=== PATIENT | female | born 1985 | race Caucasian/White ===

== ENCOUNTER 2024-04-27 11:52 | Emergency (ER) | payer OTHER, SELFPAY ==
--- NOTE | ~2024-04-27 | CT_ITS ---
EXAMINATION: CT ABDOMEN PELVIS WITHOUT IV CONTRAST CLINICAL INFORMATION: right abdominal pain COMPARISON: No prior CT available for comparison. TECHNIQUE: Multidetector volumetric imaging was performed from the superior aspect of the liver through the pubic symphysis 100 mL of Omnipaque 350 injected Sagittal and coronal reformatted images were obtained on the technologist's workstation. This CT examination was performed using dose optimization techniques as appropriate, variously including the following: *Automated exposure control *Adjustment of mA and/or kV according to patient size (this includes techniques or standardized protocols for targeted exams where dose is matched to indication/reason for exam; i.e. extremities or head) *Use of iterative reconstruction technique DLP: 521 mGy-cm FINDINGS: LOWER THORAX: Included lung bases are clear. HEPATOBILIARY: No focal hepatic lesions. No biliary ductal dilatation. GALLBLADDER: Gallbladder unremarkable. SPLEEN: Spleen is normal in size. PANCREAS: No focal mass or ductal dilatation. STOMACH AND GASTROINTESTINAL TRACT: Stomach is grossly unremarkable. There is no bowel distention or thickening. No CT evidence of appendicitis. ADRENALS: No adrenal nodules. KIDNEYS/URETERS: No hydronephrosis, stones or solid mass lesions. URINARY BLADDER: Partially decompressed. PELVIC VISCERA: Unremarkable PERITONEUM: Small amount of free fluid in the dependent portion of the pelvis cul-de-sac uncertain etiology. LYMPH NODES: No lymphadenopathy. VASCULAR:Abdominal aorta normal in size, no aneurysm found. BONES, ABDOMINAL WALL AND SOFT TISSUES: Age-appropriate changes of the spine and skeletal system, no destructive osteolytic or osteosclerotic bone lesion found CT/CT abdomen pelvis wo IV con IMPRESSION: 1. Small amount of free fluid in the dependent portion of the pelvis uncertain etiology. 2. No CT evidence of bowel obstruction. No kidney stone or hydronephrosis. No CT evidence of appendicitis. Electronically signed by: Julieta Berger MD 04/27/2024 02:29 PM EDT
[2024-04-27 12:00] VITALS: BP 119/88; PULSE 97; RESP 16; TEMP 36.4; O2SAT 97; BMI 27.2
--- NOTE | 2024-04-27 12:05 | ECG_ITS ---
Test Reason : ABDOMINAL PAIN Blood Pressure : / mmHG Vent. Rate : 076 BPM Atrial Rate : 076 BPM P-R Int : 158 ms QRS Dur : 094 ms QT Int : 388 ms P-R-T Axes : 065 041 023 degrees QTc Int : 436 ms Normal sinus rhythm with sinus arrhythmia Normal ECG No previous ECGs available Referred By: Raphael Jennings Electronically Signed By:ISATU NELSON
--- NOTE | 2024-04-27 12:06 | ED_ITS ---
HPI - General Adult General Chief complaint: Abdominal Pain Stated complaint: abd pain Time Seen by Provider: 04/27/24 12:25 Source: patient Mode of arrival: ambulatory Limitations: no limitations History of Present Illness ED Provider: DR. Wills HPI narrative: 39-year-old female walked to the emergency department for evaluation of right- sided abdominal pain that started about 2 weeks ago, patient had a prior evaluation at [facility] was diagnosed with anxiety and acid reflux, pain persist since then, feeling nauseous but no vomiting, no fever, no chills, normal appetite, last bowel movement was 3 days ago and was lose dark stool, no other sick contacts, no history of using antibiotic recently, no dysuria, no frequency urination, no vaginal bleeding, sexually active with 1 partner no concern STDs, declined chance of being . Pain is mostly to the right side of the abdomen. No past surgical abdominal history. Patient describes the pain as constant get worse after food. Related Data Previous Rx's ?Medication ?Instructions ?Recorded bisacodyl 10 mg rectal suppository 10 mg [place] DAILY PRN constipation 04/27/24 (Dulcolax (bisacodyl)) #12 ea Allergies Allergy/AdvReac Type Severity Reaction Status Date / Time No Known Allergies Allergy Verified 04/27/24 12:02 Review of Systems 2 Review of Systems: all other systems are reviewed and are negative Constitutional: Reports as per HPI and Reports no additional constitutional complaints Eyes: Reports as per HPI and Reports no additional eye complaints Reports system reviewed and no additional complaints, except as documented Cardiovascular: Reports as per HPI and Reports no additional cardiovascular complaints Respiratory: Reports as per HPI and Reports no additional respiratory complaints Gastrointestinal: Reports as per HPI and Reports no additional gastrointestinal complaints Genitourinary: Reports no additional female genitourinary complaints Musculoskeletal: Reports no additional musculoskeletal complaints Skin/Breast: Reports system reviewed and no additional complaints, except as docu Psychiatric: Reports no additional psychiatric complaints Endocrine: Reports no additional endocrine complaints Hematologic/Lymphatic: Reports no additional hematologic/lymphatic complaints Allergic/Immunologic: Reports no additional allergic/immunologic complaints Reports system reviewed and no additional complaints, except as documented and Reports Abnormal speech present [facility] [place] Past Medical History Medical History (Updated 04/27/24 @ 14:56 by Kell Wills MD) Anxiety Congenital hypoplasia of renal artery Social History Social History (System 08/21/23 @ 13:35 by Isabela Shelley) Alcohol intake: current Alcohol intake frequency: holidays/special occasions only Smoked in Last 30 Days: No Use of substances other than those prescribed or required for medical reasons: No Advance Directives: No Advance Directives Information Provided: No Patient : No Physical Exam ED Vital Signs: Vital Signs - 24 hr 04/27/24 12:00 04/27/24 15:09 Temperature 97.6 F 97.9 F Pulse Rate 97 92 Respiratory Rate 16 16 Blood Pressure 119/88 118/76 Pulse Oximetry 97 97 Oxygen Delivery Method Room Air Room Air BMI result Body Mass Index 27.2 Vital signs have been reviewed and appear to be correct. Blood pressure elevated. Heart rate normal. Respiratory rate normal. Temperature normal. Oxygen saturation normal. Appearance: Alert. Oriented X3. No acute distress. Head: Normal external exam. Normocephalic. Atraumatic. No [place] signs noted. No raccoon eyes noted Eyes: PERRLA. EOMI. Conjunctiva and sclera normal. Eyelids normal. ENT: TM's Normal. Pharynx normal. Uvula midline. Moist mucous membranes. No trismus noted. No drooling noted. No muffled voice noted. Neck: Normal inspection. Neck supple. FROM. No adenopathy. Thyroid Normal. No meningeal signs. No neck mass noted. CVS: Normal heart rate and rhythm. Heart sound normal. No murmurs noted. Pulses normal throughout. Respiratory: No respiratory distress. Painless inspiration. Breath sounds normal. No wheezes/rales/rhonchi noted. Chest nontender. No accessory muscle usage noted or decreased air movement noted. Abdomen: Soft, right upper quadrant tenderness, right lower quadrant tenderness, no guarding, no rebound tenderness.Bowel sounds normal in all 4 quadrants. No distention noted. No organomegaly noted. No visible injury noted. Back: No CVA tenderness. Full range of motion noted. Skin: Skin warm and dry. Normal skin color. Normal skin turgor. No rashes/lesions/lacerations noted. Extremities: No lower extremity edema. Extremities exhibit normal range of motion. Extremities nontender. Neuro: Oriented X 3. Cranial nerve exam: II-XII are grossly intact No motor deficit. No sensory deficit. Reflexes normal. Course Course Course Narrative: RME: done by RICCI Jennings. 39-year-old female presents to ED for right-sided abdominal pain for couple of weeks. Patient was seen at [facility] ED had no imaging only EKG and lab work. Patient states taking Pepcid with no relief. Physical exam positive for right upper quadrant right lower quadrant tenderness on palpation. Labs ordered. Reevaluation(s) Reevaluation #1: 2 weeks of abdominal pain and constipation last bowel movement was small and to 3 days ago, CT /labs / UA are unremarkable. Patient was instructed to take MiraLax and Dulcolax if needed, LFTs are unremarkable with normal gallbladder on the CT patient was instructed to follow-up with PCP and get GI referral. Time: 14:52 Medications Administered Discontinued Medications Generic Name Dose Route Start Last Admin Trade Name Freq PRN Reason Stop Dose Admin Al Hydroxide/Mg Hydroxide 30 ml 04/27/24 12:41 04/27/24 12:51 Magnesium Hydrox/Alum Hydrox 30 Ml Oral.Susp PO 04/27/24 12:42 Not Given ONCE ONE Famotidine 20 mg 04/27/24 12:41 04/27/24 12:49 Famotidine/Pf 20 Mg/2 Ml Vial IVPUSH 04/27/24 12:42 20 mg ONCE ONE Administration Medical Decision Making Differential Diagnosis Differential Diagnoses: The differential diagnosis associated with the presentation includes ( pancreatitis, gastritis, colitis, acute appendicitis, cholecystitis, ovarian cyst, UTI, , electrolyte derangement, severe anemia.) Admission/Observation Consideration of admission/observation: Escalation of care including admission/observation considered Lab Data MDM Lab Attestation statement: I reviewed the patient's lab results. 04/27/24 12:24 04/27/24 12:24 Labs: Lab Results 04/27/24 04/27/24 Range/Units 12:23 12:24 WBC 5.8 (4.8-10.8) X10*3/uL RBC 5.05 (4.20-5.50) X10*6/uL Hgb 15.0 (12.0-16.0) g/dl Hct 43.0 (37.0-47.0) % MCV 85.1 (80.0-98.0) fL MCH 29.7 (27.0-33.0) pg MCHC 34.9 (31.0-35.0) g/dl RDW 12.5 (11.0-16.0) % Plt Count 301 (160-400) X10*3/uL MPV 9.2 L (9.4-12.3) fL Immature Gran % (Auto) 0.5 H (0.0-0.4) % Neut % (Auto) 59.3 (45-73) % Lymph % (Auto) 27.8 (20-40) % [place] % (Auto) 10.5 (2-11) % Eos % (Auto) 1.6 (0-4) % Baso % (Auto) 0.3 (0-2) % Lymph # (Auto) 1.6 (1.2-4.9) X10*3/uL [place] # (Auto) 0.6 (0.1-1.2) X10*3/uL Eos # (Auto) 0.1 (0.0-0.4) X10*3/uL Baso # (Auto) 0.0 (0.0-0.2) X10*3/uL Abs Immat Gran (auto) 0.03 (0.00-0.03) X10*3/uL Absolute Neuts (auto) 3.4 (2.0-8.3) x10*3/uL Absolute Nucleated RBC 0.000 (0.0-0.012) X10*3/uL Nucleated RBC % (auto) 0.0 (0.0-0.2) /100WBC PT 12.0 (10.9-12.4) SEC INR 1.0 (0.9-1.1) APTT 35.1 (26.0-36.8) SEC Sodium 141 (135-145) mmol/L Potassium 3.9 (3.3-5.1) mmol/L Chloride 105 (96-108) mmol/L Carbon Dioxide 26 (22-29) mmol/L Anion Gap 14 (12-20) BUN 14 (9-16) mg/dL Creatinine 0.84 (0.5-1.4) mg/dL Estim Creat Clear Calc 92.4 Estimated GFR > 60 Random Glucose 101 (60-115) mg/dL Calcium 9.7 (8.4-10.2) mg/dL Total Bilirubin 0.7 (0.0-1.0) mg/dL AST 15 (5-31) U/L ALT 18 (0-31) U/L Alkaline Phosphatase 74 (39-117) U/L Troponin I High Sens < 2.7 (<3.5-17.0) ng/L Total Protein 7.0 (6.5-8.0) g/dL Albumin 4.4 (3.5-5.0) g/dL Lipase 18 (8-78) U/L Beta HCG, Quant < 2 mIU/mL Urine Color Yellow Urine Appearance Clear Urine pH 6.0 (5.0-9.0) Ur Specific [place] >= 1.030 H (1.005-1.025) Urine Protein Trace (Neg-Trace) mg/dL Urine Glucose (UA) Negative (Negative) mg/dL Urine Ketones Trace (Negative) mg/dL Urine Blood Large (3+) H (Negative) Urine Nitrite Negative (Negative) Ur Leukocyte Esterase Trace H (Negative) Urine RBC >20 H (0-2) /HPF Urine WBC 0-5 (0-5) /HPF Ur Squamous Epith Cells 6-10 (0-2) /HPF Urine Bacteria None Seen (None Seen) Hyaline Casts 0-2 (0-2) /LPF Urine Test NEGATIVE (NEGATIVE) Independent Interpretation I performed an independent interpretation of an: CT Scan ( Abdomen pelvis:1. Small amount of free fluid in the dependent portion of the pelvis uncertain etiology. 2. No CT evidence of bowel obstruction. No kidney stone or hydronephrosis. No CT evidence of appendicitis. ) Radiology Impression Discussion of test interpretation with radiology: I have reviewed the radiologist's reading. Discharge Plan Discharge Clinical Impression: Abdominal pain, Constipation Patient Disposition: Home, Self-Care Instructions: Constipation (ED) Additional Instructions: get a referral from your doctor for GI follow-up. Prescriptions: New bisacodyl [Dulcolax (bisacodyl)] 10 mg suppository 10 mg [place] DAILY PRN (Reason: constipation) Qty: 12 0RF Referrals: Krystina Sue MD [Primary Care Provider] - Interventions: ED Discharge Assessment Last Done: 04/27/24 15:09 Discharge Date/Time: 04/27/24 15:10 Print Language: French
[2024-04-27 12:28] LABS: MANUAL DIFF FLAG NO
--- NOTE | 2024-04-27 12:30 | PC.NURSE ---
pt a&ox3, iv inserted, labs drawn, traffic monitor specialist applied-nsr on monitor, vss, pt c/o abd pain which has been ongoing. pt seen at [facility] without any resolution. provider at bedside will continue plan of care
[2024-04-27 12:32] LABS: Basophils Percent Auto 0.3 % (0-2); Eosinophils Absolute Auto 0.1 X10*3/uL (0.0-0.4); Eosinophils Percent Auto 1.6 % (0-4); Imm Gran Abs Auto 0.03 X10*3/uL (0.00-0.03); Imm Gran Pct Auto 0.5 % (0.0-0.4); Lymphocytes Absolute Auto 1.6 X10*3/uL (1.2-4.9); Lymphocytes Percent Auto 27.8 % (20-40); Mean Corpuscular HGB Conc 34.9 g/dl (31.0-35.0); Mean Corpuscular Hemoglobin 29.7 pg (27.0-33.0); Mean Corpuscular Volume 85.1 fL (80.0-98.0); Mean Platelet Volume 9.2 fL (9.4-12.3); Monocytes Absolute Auto 0.6 X10*3/uL (0.1-1.2); Monocytes Percent Auto 10.5 % (2-11); Neutrophils Absolute Auto 3.4 x10*3/uL (2.0-8.3); Neutrophils Percent Auto 59.3 % (45-73); Platelet Count 301 X10*3/uL (160-400); Red Blood Count 5.05 X10*6/uL (4.20-5.50); Red Cell Distribution Width 12.5 % (11.0-16.0); White Blood Count 5.8 X10*3/uL (4.8-10.8)
[2024-04-27 12:34] LABS: Appearance Urine Clear; Color Urine Yellow; Glucose Urine UA Negative (Negative); Leukocyte Esterase Urine Trace (Negative); Nitrite Urine Negative (Negative); Specific Gravity - Urine >= 1.030 (1.005-1.025); UMIC TRIGGER UACC YES; Urine Blood Large (3+) (Negative); Urine Ketones Trace mg/dL (Negative); Urine Protein Trace mg/dL (Neg-Trace)
[2024-04-27 12:39] LABS: Bacteria Urine None Seen (None Seen); Hyaline Casts Urine 0-2 /LPF (0-2); RBC Urine >20 /HPF (0-2); WBC Urine 0-5 /HPF (0-5)
[2024-04-27 12:41] LABS: Partial Thromboplastin Time 35.1 SEC (26.0-36.8)
[2024-04-27 12:44] LABS: UPreg QC Valid YES; Urine Pregnancy NEGATIVE (NEGATIVE)
[2024-04-27 12:46] LABS: Alanine Aminotransferase 18 U/L (0-31); Albumin Level 4.4 g/dL (3.5-5.0); Alkaline Phosphatase 74 U/L (39-117); Anion Gap 14 (12-20); Aspartate Amino Transferase 15 U/L (5-31); Bilirubin Total 0.7 mg/dL (0.0-1.0); Blood Urea Nitrogen 14 mg/dL (9-16); Calcium 9.7 mg/dL (8.4-10.2); Carbon Dioxide 26 mmol/L (22-29); Chloride 105 mmol/L (96-108); Creatinine Clr Calc Pharmacy 92.4; Estimated Glomerular Filt Rate > 60; Glucose Random 101 mg/dL (60-115); Lipase 18 U/L (8-78); Potassium 3.9 mmol/L (3.3-5.1); Sodium 141 mmol/L (135-145)
[2024-04-27] MEDS: Famotidine/PF 20 MG/2 ML VIAL IVPUSH (12:49)
--- NOTE | 2024-04-27 12:55 | PC.NURSE ---
pt medicated per order, and going to CT scan
[2024-04-27 13:21] LABS: HCG Quantitative < 2 mIU/mL; Troponin-I High Sensitivity < 2.7 ng/L (<3.5-17.0)
[2024-04-27 15:09] VITALS: BP 118/76; PULSE 92; RESP 16; TEMP 36.6; O2SAT 97
== END 2024-04-27 15:10 | disposition home or self-care (01) ==
PROVIDERS: Physician Assistant; Emergency Provider Emergency Medicine; PCP Internal Medicine
DX: R10.31 Right lower quadrant pain (principal); K59.00 Constipation, unspecified; I49.8 Other specified cardiac arrhythmias; R10.2 Pelvic and perineal pain; Z79.899 Other long term (current) drug therapy
CPT/HCPCS: 36415; 74176; 80053; 81001; 81025; 83690; 84484; 84702; 85025; 85610; 85730; 93005; 99284; 99285

== ENCOUNTER → 2024-04-27 12:05 | Outpatient (BNV) | payer OTHER, SELFPAY | PROVIDERS: Emergency Provider Emergency Medicine; PCP Internal Medicine; Visit Provider Internal Medicine | DX: I49.8 Other specified cardiac arrhythmias (principal); R10.9 Unspecified abdominal pain | CPT/HCPCS: 93010 ==

== ENCOUNTER 2024-05-09 10:01 | Outpatient (AMB) | payer OTHER, SELFPAY ==
--- NOTE | 2024-05-09 10:15 | MHC.OFFVIS ---
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 She has been seen previously at [facility] and then at [facility] she had a tubal ligation after her 2nd at [facility]. She has a chronic back condition the causes her back pain and it is worse with some of her menses not all of them some of her menses are heavy and some are light they are different in that way but they are regular and on time she is aware of symptoms of ovulation and she is midcycle in ovulating right now. She has a history of abnormal Pap smears and has had colposcopies several times and biopsies. She says her last Pap smear was negative.. She is on medicine for anxiety and in his more less controlled.. She was told when she had her tubal ligation by the surgeon who did it that it was surprising that she had been able to get at all because of her congenital renal or adrenal issue. There was also some mention of the tubes being very thin?. [facility] Medical History (Updated 05/09/24 @ 11:24 by Sandra Velázquez CNM) Anxiety Congenital hypoplasia of renal artery Surgical History (Updated 05/09/24 @ 11:17 by Gerardo Lorenzo CMA) History of bilateral tubal ligation Social History Alcohol intake: current Alcohol intake frequency: holidays/special occasions only Female Reproductive History Menstrual Age of Menarche: 12 Duration of menses: 6-7 days Date of last menstrual period: 04/25/24 control method: none and permanent sterilization Total pregnancies: 2 Full term: 2 Date of last pap smear: 08/14/21 (negative,per patient) History of abnormal pap smear: Yes (unknown date) Physical Exam Vital Signs: Last Vital Signs BP 106/62 05/09/24 10:16 BMI result Body Mass Index 27.3 Const General: healthy appearing, comfortable, no acute distress, well developed and alert Nutritional Appearance: average body habitus Orientation/consciousness: patient oriented x3 Limitations: no limitations HEENT Head: Yes normocephalic Neck Neck: Yes normal visual inspection Chest Chest palpation & inspection: normal inspection of the chest Breast/axilla inspection: normal inspection of the breasts and normal inspection of the axillae Breast/axilla palpation: normal palpation of the breasts and normal palpation of the axillae Resp Effort & Inspection: normal respiratory effort GI Inspection: Yes normal to inspection, No Abdominal wall edema and No distended Palpation (GI): Soft to palpation and nontender Other: External exam within normal limits patient has some darkened areas of pigmentation but she says she has always had an have not changed. Vagina pink and moist vaginal cervical discharge completely consistent with midcycle and ovulation tip parous cervix smooth midposition to posterior multiparous friable with Pap uterus midposition may be slightly slightly retroverted but mobile nontender not enlarged adnexa nontender not enlarged very good tone Kegel. General: Yes bladder normal to palpation External Female Exam: normal external appearance and normal appearance of the urethra Speculum Exam - Vagina: normal appearance of the vagina, normal palpation and normal vaginal discharge Speculum Exam - Cervix: normal appearance of the cervix, normal palpation and nontender Bimanual exam- vagina & uterus: normal bimanual exam, normal palpation, uterine size normal, bladder normal to palpation, consistency normal, normal palpation, uterine mobility normal, uterine shape normal, No Cervical tenderness present, non-tender and no cervical motion tenderness Bimanual Exam- Adnexa, other: normal adnexae, no masses, normal and No adnexal tenderness Neuro General: patient oriented x3 Assessment & Plan Assessment & Plan (1) Encounter for screening examination for sexually transmitted disease: Code(s): Z11.3 - Encounter for screening for infections with a predominantly sexual mode of transmission Category: Medical (2) Hx of abnormal cervical Pap smear: Code(s): Z87.42 - Personal history of other diseases of the female genital tract Category: Medical (3) Dysmenorrhea, unspecified: Comment: Menses is bad she has a chronic back condition and that i.s where she feels the pain most with occasional menses Code(s): N94.6 - Dysmenorrhea, unspecified Category: Medical (4) Well woman exam with routine gynecological exam: Code(s): Z01.419 - Encounter for gynecological examination (general) (routine) without abnormal findings Category: Medical (5) Breast cancer screening: Code(s): Z12.39 - Encounter for other screening for malignant neoplasm of breast Category: Medical Plan -----Discussed in this visit the following: healthy balanced diet, regular and consistent exercise, getting recommended health screens, doing the best she can for her particular health concerns, kegel exercises, pap smear screening and followup recommendations, mammography screening and SBE, normal changes in cycles in her life stage--- . Discussed her history in some detail discussed the possible will of either progestin only OCPs or Mirena to help lighten her menses which may in turn help her experience some of them less painfully her back issue causes back pain at the time of some of her menses. If she was interested in discussing these further she could make an appointment.. Discussed her past history of abnormal Pap smears if this 1 is abnormals she will be referred for colposcopy.. Offered blood tests and screening tests for STIs and she accepted she has difficulty getting onto the portal so she may call next week towards the end of the week to get all of her results together the we would send her a letter about her Pap smear. Her mother of cervical cancer so that test would be a particular concern to her She walks for exercise she used to run but can not because of her back. Orders: Orders Syphilis Screen Today N94.6 - Dysmenorrhea, unspecified, Z11.3 - Encounter for screening for infections with a predominantly sexual mode of transmission, Z87.42 - Personal history of other diseases of the female genital tract HIV Ab/Ag Today N94.6 - Dysmenorrhea, unspecified, Z11.3 - Encounter for screening for infections with a predominantly sexual mode of transmission, Z87.42 - Personal history of other diseases of the female genital tract Hepatitis B Surface Antigen Today N94.6 - Dysmenorrhea, unspecified, Z11.3 - Encounter for screening for infections with a predominantly sexual mode of transmission, Z87.42 - Personal history of other diseases of the female genital tract Hepatitis C Antibody Today N94.6 - Dysmenorrhea, unspecified, Z11.3 - Encounter for screening for infections with a predominantly sexual mode of transmission, Z87.42 - Personal history of other diseases of the female genital tract Medications: Discontinued bisacodyl (Dulcolax (bisacodyl)) Discontinued Reason: Patient Completed Course 10 mg [place] DAILY PRN 12 ea 0RF constipation Coding Level of Care Code New Pt Prev Care 18-39yr([id number] Diagnoses Encounter for screening examination for sexually transmitted disease Z11.3 Hx of abnormal cervical Pap smear Z87.42 Dysmenorrhea, unspecified N94.6 Well woman exam with routine gynecological exam Z01.419 Breast cancer screening Z12.39
[2024-05-09 10:16] VITALS: BP 106/62; BMI 27.3
== END 2024-05-09 11:23 | disposition home or self-care (01) ==
LOC: HO.HWSM 10:01
PROVIDERS: PCP Internal Medicine; Visit Provider Advanced Practice Midwife
DX: Z01.419 Encounter for gynecological examination (general) (routine) without abnormal findings (principal); N94.6 Dysmenorrhea, unspecified; Z87.42 Personal history of other diseases of the female genital tract
CPT/HCPCS: 99385

== ENCOUNTER 2024-05-09 10:01 | Outpatient (REF) | payer OTHER, SELFPAY ==
[2024-05-09 18:17] LABS: Bacterial Vaginosis PCR NEGATIVE (Negative); Candida Group PCR NOT DETECTED (Not Detect); Candida glab krusei PCR NOT DETECTED (Not Detect); Trichomonas vaginalis PCR NOT DETECTED (Not Detect)
[2024-05-10 13:12] LABS: CT PCR NOT DETECTED (Not Detect.); NG PCR NOT DETECTED (Not Detect.)
[2024-05-14 15:48] LABS: HPV mRNA E6/E7 Not Detected (Not Detected)
== END 2024-05-09 10:02 | disposition home or self-care (01) ==
LOC: HO.LAB 10:01
PROVIDERS: PCP Internal Medicine; Visit Provider Advanced Practice Midwife
DX: N89.8 Other specified noninflammatory disorders of vagina (principal); Z01.419 Encounter for gynecological examination (general) (routine) without abnormal findings
CPT/HCPCS: 0352U; 36415; 87491; 87591; 87624; 88175

== ENCOUNTER 2025-06-18 13:55 | Outpatient (AMB) | payer OTHER, SELFPAY ==
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
[2025-06-18 14:13] VITALS: BP 114/64; PULSE 87; RESP 14; TEMP 36.6; O2SAT 97; BMI 28.8
== END 2025-06-18 14:53 | disposition home or self-care (01) ==
LOC: HO.HMCFM 13:56
PROVIDERS: PCP Physician Assistant Medical; Visit Provider Physician Assistant Medical
DX: Z00.00 Encounter for general adult medical examination without abnormal findings (principal); M54.50 Low back pain, unspecified; M79.605 Pain in left leg; M43.10 Spondylolisthesis, site unspecified; F41.8 Other specified anxiety disorders; Q89.1 Congenital malformations of adrenal gland

== ENCOUNTER → 2025-06-18 13:55 | Outpatient (BNVA) | payer OTHER, SELFPAY | PROVIDERS: Visit Provider Physician Assistant Medical | DX: Z13.31 Encounter for screening for depression (principal); Z13.39 Encounter for screening examination for other mental health and behavioral disorders | CPT/HCPCS: 96127 ==

== ENCOUNTER 2025-06-27 10:05 | Outpatient (REF) | payer OTHER, SELFPAY ==
--- NOTE | ~2025-06-27 | XR_ITS ---
EXAMINATION: XR LUMBOSACRAL SPINE CLINICAL INFORMATION: M54.50 - Low back pain, unspecified COMPARISON: None available. TECHNIQUE: AP and lateral views. FINDINGS: . 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 Spondylosis L5-S1 and L4-5 levels. Questionable spondylolysis pars interarticulares at the sacralized vertebra. No acute fracture or listhesis. 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 Electronically signed by: Leighton Blank MD 06/29/2025 10:07 AM [facility]
--- OUTSIDE RECORDS SUMMARY | 2025-06-27 10:09 | XMS_ITS | Clinical Summary ---
Author Organization [employer] Address [address] [place] [address] Care Team Providers Care Room Cleaner Name Role Phone Unavailable Primary Care Provider Unavailabl e Social History Tobacco Use Types Packs/Day Years Used Date Smoking Tobacco: Never Assessed Comments Unknown Sex and Gender Information Value Date Recorded Sex Assigned at Female 05/15/2022 10:21 AM EDT Legal Sex Female 10:21 AM EDT Gender Identity Not on file Sexual Orientation Not on file Plan of Treatment Health Maintenance Due Date Last Done Comments Depression Screening 1987 Disability Screening 1987 Alcohol/Substance Use Screening 1999 Tobacco Screening 1999 Family Planning (PISQ) 2002 Pap Smear 01/29/2008 Cervical Cancer Screening 2017 HPV/Cotest 2017 DTaP/Tdap/Td Vaccines (7 - Td or Tdap) 08/06/2023 08/06/2013, 05/02/1999, 09/05/1991, Additional history exists COVID-19 Vaccine ( - 2024- season) 2025 Influenza Vaccine (#1) 2025 05/06/2009 Zoster Vaccines (1 of 2) 2037 RSV Patients and Patients Aged 60 years or older (1 - 1-dose 75+ series) 2062 HIB Vaccines Completed 10/16/1988 IPV Vaccines Completed 09/05/1991, 07/1989, 05/06/1988, Additional history exists Hepatitis B Vaccines Completed 10/19/1998, 07/02/1998, 05/04/1998 HPV Vaccines Completed 08/28/2007, 04/15, 02/25/2007 Hepatitis A Vaccines Aged Out No long er eligible based on patient's age to complete this topic Meningococcal B Vaccine Aged Out No l onger eligible based on patient's age to complete this topic Meningococcal Vaccine Aged Out No ko heather eligible based on patient's age to complete this topic Pneumococcal Vaccine: Pediatrics (0 to 5 Years) and At-Risk Patients (6 to 49) Years Aged Out No longer eligible based on patient's age to complete this topic RSV under 20 months Aged Out No longe r eligible based on patient's age to complete this topic Rotavirus Vaccines Aged Out No longer eligible based on patient's age to complete this topic
--- OUTSIDE RECORDS SUMMARY | 2025-06-27 10:09 | XMS_ITS | Encounter Summary ---
Author Organization [employer] [facility] Address [address] [place] [address] Care Team Providers Care Correspondence Clerk Name Role Phone Unavailable Primary Care Provider Unavailabl e Encounter Details Date Type Department Care Team (Latest Contact Info) Description 12/10/2018 Abstract C CONVERSIONS Dental, Provider, DDS Social History Tobacco Use Types Packs/Day Years Used Date Smoking Tobacco: Never Assessed Comments Unknown Sex and Gender Information Value Date Recorded Sex Assigned at Female 05/15/2022 10:21 AM EDT Legal Sex Female 10:21 AM EDT Gender Identity Not on file Sexual Orientation Not on file documented as of this encounter Plan of Treatment Not on file documented as of this encounter Visit Diagnoses Not on filedocumented in this encounter
[2025-06-27 11:19] LABS: Hematocrit 38.0 % (37.0-47.0); Hemoglobin 13.1 g/dl (12.0-16.0); Mean Corpuscular HGB Conc 34.5 g/dl (31.0-35.0); Mean Corpuscular Hemoglobin 29.5 pg (27.0-33.0); Mean Corpuscular Volume 85.6 fL (80.0-98.0); NRBC Abs Auto 0.000 X10*3/uL (0.0-0.012); NRBC Pct Auto 0.0 /100WBC (0.0-0.2); Platelet Count 266 X10*3/uL (160-400); Red Blood Count 4.44 X10*6/uL (4.20-5.50); White Blood Count 6.7 X10*3/uL (4.8-10.8)
[2025-06-27 12:00] LABS: Alanine Aminotransferase 28 U/L (0-31); Albumin Level 4.2 g/dL (3.5-5.0); Alkaline Phosphatase 71 U/L (39-117); Anion Gap 10 (12-20); Aspartate Amino Transferase 22 U/L (5-31); Blood Urea Nitrogen 18 mg/dL (9-16); Calcium 9.0 mg/dL (8.4-10.2); Carbon Dioxide 22 mmol/L (22-29); Chloride 109 mmol/L (96-108); Cholesterol 126 mg/dL (<200); Estimated Glomerular Filt Rate > 60; HDL Cholesterol 37 mg/dL (>40); Potassium 4.2 mmol/L (3.3-5.1); Sodium 137 mmol/L (135-145); Total Protein 6.6 g/dL (6.5-8.0); Triglycerides 112 mg/dL (<150)
[2025-06-27 12:16] LABS: Vitamin B12 409 pg/mL (200-900)
== END 2025-06-27 10:06 | disposition home or self-care (01) ==
LOC: HO.LAB 10:05
PROVIDERS: PCP Physician Assistant Medical; Visit Provider Physician Assistant Medical
DX: Z00.00 Encounter for general adult medical examination without abnormal findings (principal); Q89.1 Congenital malformations of adrenal gland; M54.50 Low back pain, unspecified; M79.605 Pain in left leg; M43.10 Spondylolisthesis, site unspecified; F41.8 Other specified anxiety disorders; Z91.89 Other specified personal risk factors, not elsewhere classified; E78.5 Hyperlipidemia, unspecified; Z13.21 Encounter for screening for nutritional disorder
CPT/HCPCS: 36415; 72100; 80053; 80061; 82306; 82607; 84443; 85027

== ENCOUNTER → 2025-06-27 10:38 | Outpatient (BNV) | payer OTHER, SELFPAY | PROVIDERS: PCP Physician Assistant Medical; Visit Provider Radiology Diagnostic Radiology | DX: M47.818 Spondylosis without myelopathy or radiculopathy, sacral and sacrococcygeal region (principal) | CPT/HCPCS: 72100 ==